=== PATIENT | female | born 1950 | race Caucasian/White ===

== ENCOUNTER → 2018-11-28 | Outpatient (CLI) | payer MEDICARE, OTHER ==
--- NOTE | 2018-11-28 13:16 | MM ---
Reason for exam: screening (asymptomatic). Last mammogram was performed 1 year and 6 months ago. History: Patient is postmenopausal. Benign excisional biopsy of the right breast, October 27, 2000. 2 benign excisional biopsies of the left breast. Physical Findings: A clinical breast exam by your physician is recommended on an annual basis and results should be correlated with mammographic findings. MG 3D Screening Mammo W/Cad Bilateral CC and MLO view(s) were taken. Prior study comparison: May 28, 2017, bilateral MG 3d screening mammo w/cad. June 30, 2015, left breast MG 3d work up w/cad LT. The breast tissue is heterogeneously dense. This may lower the sensitivity of mammography. No suspicious abnormality. Post biopsy change bilaterally. No significant changes when compared with prior studies. ASSESSMENT: Benign, BI-RAD 2 RECOMMENDATION: Routine screening mammogram of both breasts in 1 year.
== END | disposition home or self-care (01) ==
LOC: RADMAMWWP 07:36
PROVIDERS: ATTEND Family Medicine
DX: Z12.31 Encounter for screening mammogram for malignant neoplasm of breast (principal)
CPT/HCPCS: 77063; 77067

== ENCOUNTER → 2021-01-22 | Outpatient (CLI) | payer MEDICARE ==
--- NOTE | 2021-01-26 10:40 | MM ---
Reason for exam: screening (asymptomatic). Last mammogram was performed 2 years and 2 months ago. History: Patient is postmenopausal. Benign excisional biopsy of the right breast, October 27, 2000. 2 benign excisional biopsies of the left breast. Physical Findings: A clinical breast exam by your physician is recommended on an annual basis and results should be correlated with mammographic findings. MG 3D Screening Mammo W/Cad Bilateral CC and MLO view(s) were taken. Prior study comparison: November 28, 2018, bilateral MG 3d screening mammo w/cad. May 28, 2017, bilateral MG 3d screening mammo w/cad. June 23, 2015, bilateral MG screening mammo w CAD. There are scattered fibroglandular densities. Stable grouped punctate calcifications central left breast previously seen better on MLO views. No significant changes when compared with prior studies. ASSESSMENT: Benign, BI-RAD 2 RECOMMENDATION: Routine screening mammogram of both breasts in 1 year.
== END | disposition home or self-care (01) ==
LOC: RADMAMWWP 08:26
PROVIDERS: ATTEND Family Medicine
DX: Z12.31 Encounter for screening mammogram for malignant neoplasm of breast (principal); Z78.0 Asymptomatic menopausal state
CPT/HCPCS: 77063; 77067

== ENCOUNTER → 2021-02-20 | Outpatient (CLI) | payer MEDICARE, OTHER ==
--- NOTE | 2021-02-20 12:49 | XR ---
EXAMINATION TYPE: XR ankle limited RT DATE OF EXAM: 02/20/2021 COMPARISON: NONE HISTORY: Pain FINDINGS: Two views of the ankle demonstrate the ankle mortise to be intact and symmetric. The joint spaces ar e preserved. Tiny bony density adjacent to the medial malleolus. Pes planus deformity with calcaneal spur. IMPRESSION: 1. Tiny bony density adjacent to the medial malleolus too small to characterize. Correlate with point tenderness to exclude tiny avulsion fracture.
--- NOTE | 2021-02-20 12:50 | XR ---
EXAMINATION TYPE: XR foot limited RT DATE OF EXAM: 02/20/2021 COMPARISON: NONE HISTORY: Pain TECHNIQUE: Two views are submitted. FINDINGS: Two views of the ankle demonstrate the ankle mortise to be intact and symmetric. Severe arthropathy f irst MTP joint. Arthropathy of the second through fifth tarsometatarsal joints. Diffuse osteopenia.. Tiny bony density adjacent to the medial malleolus. Pes planus deformity with calcaneal spur. IMPRESSION: 1. Tiny bony density adjacent to the medial malleolus too small to characterize. Correlate with point tenderness to exclude tiny avulsion fracture.
== END | disposition home or self-care (01) ==
LOC: RADXRMAIN 12:22
PROVIDERS: ATTEND Physician Assistant Medical
DX: M89.8X7 Other specified disorders of bone, ankle and foot (principal)

== ENCOUNTER → 2022-03-19 | Outpatient (CLI) | payer MEDICARE, OTHER ==
--- NOTE | 2022-03-19 16:15 | MM ---
Reason for Exam: Screening (asymptomatic). Last mammogram was performed 1 year(s) and 2 month(s) ago. Patient History: Menarche at age 10. First Full-Term at age 17. Postmenopausal. Benign Excisional Biopsy on the left side. Benign Excisional Biopsy on the left side. 10/27/2000, Benign Excisional Biopsy on the right side. Risk Values: Dagmar 5 year model risk: 1.9%. NCI Lifetime model risk: 4.7%. Prior Study Comparison: 05/28/2017 Bilateral Screening Mammogram, [facility]. 11/28/2018 Bilateral Screening Mammogram, [facility]. 01/22/2021 Bilateral Screening Mammogram, [facility]. Tissue Density: The breast tissue is heterogeneously dense. This may lower the sensitivity of mammography. Findings: Analyzed By CAD. There is no suspicious group of microcalcifications or new suspicious mass in either breast. Overall Assessment: Benign, BI-RAD 2 Management: Screening Mammogram of both breasts in 1 year. 1. Patient should continue monthly self breast exams. 2. A clinical breast exam by your physician is recommended on an annual basis. 3. This exam should not preclude additional follow-up of suspicious palpable abnormalities. Electronically signed and approved by: Vikas Benedict M.D. Radiologist
== END | disposition home or self-care (01) ==
LOC: RADMAMWWP 06:51
PROVIDERS: ATTEND Family Medicine
DX: Z12.31 Encounter for screening mammogram for malignant neoplasm of breast (principal); Z78.0 Asymptomatic menopausal state
CPT/HCPCS: 77063; 77067

== ENCOUNTER → 2023-05-16 | Outpatient (CLI) | payer MEDICARE ==
--- NOTE | 2023-05-17 16:18 | MM ---
Reason for Exam: Screening (asymptomatic). Last mammogram was performed 1 year(s) and 2 month(s) ago. Patient History: Menarche at age 10. First Full-Term at age 17. Postmenopausal. Benign Excisional Biopsy on the left side. Benign Excisional Biopsy on the left side. 10/27/2000, Benign Excisional Biopsy on the right side. Risk Values: Dagmar 5 year model risk: 1.9%. NCI Lifetime model risk: 4.4%. Prior Study Comparison: 11/28/2018 Bilateral Screening Mammogram, [facility]. 01/22/2021 Bilateral Screening Mammogram, [facility]. 03/19/2022 Bilateral MG 3D screening mammo w/cad, [facility]. Tissue Density: The breast tissue is heterogeneously dense. This may lower the sensitivity of mammography. Findings: Analyzed By CAD. Pattern appears symmetrical and stable. There is scattered and regional punctate calcifications. No suspicious cluster of microcalcifications evident. No suspicious groups of microcalcifications, spiculated or lobular masses, architectural distortion or other secondary signs of malignancy are mammographically apparent. Overall Assessment: Benign, BI-RAD 2 Management: Screening Mammogram of both breasts in 1 year. A negative mammogram report should not preclude additional follow up of suspicious palpable abnormalities. Patient should continue monthly self breast exam. A clinical breast exam by your physician is recommended on an annual basis and results should be correlated with mammographic findings. Electronically signed and approved by: Karl Friend D.O. Radiologis
== END | disposition home or self-care (01) ==
LOC: RADMAMWWP 08:23
PROVIDERS: ATTEND Family Medicine
DX: Z12.31 Encounter for screening mammogram for malignant neoplasm of breast (principal); Z78.0 Asymptomatic menopausal state
CPT/HCPCS: 77063; 77067

== ENCOUNTER → 2024-05-17 | Outpatient (CLI) | payer MEDICARE, OTHER ==
--- NOTE | 2024-05-19 22:11 | MM ---
Reason for Exam: Screening (asymptomatic). Last screening mammogram was performed 12 month(s) ago. Patient History: Menarche at age 10. First Full-Term at age 17. Postmenopausal. Benign Excisional Biopsy on the left side. Benign Excisional Biopsy on the left side. 10/27/2000, Benign Excisional Biopsy on the right side. Risk Values: Dagmar 5 year model risk: 1.9%. NCI Lifetime model risk: 4.1%. Prior Study Comparison: 05/28/2017 Bilateral Screening Mammogram, [facility]. 11/28/2018 Bilateral Screening Mammogram, [facility]. 01/22/2021 Bilateral Screening Mammogram, [facility]. 03/19/2022 Bilateral MG 3D screening mammo w/cad, [facility]. 05/16/2023 Bilateral MG 3D screening mammo w/cad, [facility]. Tissue Density: The breasts are heterogeneously dense, which may obscure small masses. Findings: Analyzed By CAD. The pattern is symmetrical. No significant interval change is evident No suspicious groups of microcalcifications, spiculated or lobular masses, architectural distortion or other secondary signs of malignancy are mammographically apparent. Overall Assessment: Benign, BI-RAD 2 Management: Screening Mammogram of both breasts in 1 year. A negative mammogram report should not preclude additional follow up of suspicious palpable abnormalities. Patient should continue monthly self breast exam. A clinical breast exam by your physician is recommended on an annual basis and results should be correlated with mammographic findings. Note on Dagmar scores and lifetime risk: 1. A Dagmar score greater than 3% is considered moderate risk. If this is the case, consider specialist referral to assess eligibility for a risk reducing agent. 2. If overall lifetime risk for the development of breast cancer is 20% or higher, the patient may qualify for future screening with alternating mammogram and breast MRI. [facility], , 05/19/2024 10:08 PM. Electronically signed and approved by: Karl Friend D.O. Radiologis
== END | disposition home or self-care (01) ==
LOC: RADMAMWWP 08:37
PROVIDERS: ATTEND Family Medicine
DX: Z12.31 Encounter for screening mammogram for malignant neoplasm of breast (principal); R92.333 Mammographic heterogeneous density, bilateral breasts; Z78.0 Asymptomatic menopausal state
CPT/HCPCS: 77063; 77067